=== PATIENT | female | born 1975 | race Caucasian/White ===

== ENCOUNTER → 2017-03-23 | Outpatient (CLI) | payer OTHER ==
[~2017-03-23] MED LIST: ALPR0.25 PO; PARO10TA24 PO
== END | disposition home or self-care (01) ==
LOC: STAR 15:15
PROVIDERS: ATTEND Thoracic Surgery (Cardiothoracic Vascular Surgery)
DX: Z02.9 Encounter for administrative examinations, unspecified (principal)

== ENCOUNTER 2017-03-30 06:50 | Day surgery (SDC) | payer OTHER ==
[~2017-03-30] VITALS: Ht 165.1 cm; Wt 73.9 kg
[~2017-03-30 06:50] MED LIST changes: +BUPIVACAINE/PF-EPI 0.5% 1:200K ONE
[2017-03-30] MEDS ORDERED: SCOPOLAMINE PATCH, 1.5MG PATCH.TD72 TD ONE ×2 (07:05→07:30)
[2017-03-30] MEDS ORDERED: LACTATED RINGERS 1,000 ML IV SCH ×2 (07:15→09:40)
[2017-03-30 07:16] VITALS: BP 120/80
[2017-03-30] MEDS ORDERED: FENTANYL PF 100 MCG/2ML ONE ×2 (08:37→09:56)
[2017-03-30] MEDS ORDERED: PROPOFOL 10 MG/ML, 20ML ONE (08:41)
[2017-03-30] MEDS ORDERED: ONDANSETRON 2MG/ML, 2ML ONE (08:41)
[2017-03-30] MEDS ORDERED: NEOSTIGMINE 1 MG/ML, 10ML ONE (08:41)
[2017-03-30] MEDS ORDERED: SUCCINYLCHOLINE 20 MG/ML, 10ML ONE (08:41)
[2017-03-30] MEDS ORDERED: ROCURONIUM 10 MG/ML ONE (08:41)
[2017-03-30] MEDS ORDERED: CEFAZOLIN 1,000 MG ONE (08:41)
[2017-03-30] MEDS ORDERED: DEXAMETHASONE 4 MG/ML, 1ML ONE (08:41)
[2017-03-30] MEDS ORDERED: GLYCOPYRROLATE 0.2MG/1ML ONE (08:41)
[2017-03-30] MEDS ORDERED: ACETAMINOPHEN 325 MG TABLET PO PRN (09:00)
[2017-03-30] MEDS ORDERED: hydrALAzine 20 MG/ML, 1ML IV PRN (09:00)
[2017-03-30] MEDS ORDERED: EPHEDRINE 50 MG/ML, 1ML IVPush PRN (09:00)
[2017-03-30] MEDS ORDERED: LABETALOL 5MG/ML, 20ML IV PRN (09:00)
[2017-03-30] MEDS ORDERED: ALBUTEROL SULFATE 2.5 MG/3 ML NPPB PRN (09:00)
[2017-03-30] MEDS ORDERED: OXYcodone 5 MG/5 ML ORAL.SOL UDC PO PRN (09:00)
[2017-03-30] MEDS ORDERED: ONDANSETRON 2MG/ML, 2ML IVPush PRN ×2 (09:00→10:00)
[2017-03-30] MEDS ORDERED: MEPERIDINE/PF 25MG/0.5ML IVPush PRN (09:00)
[2017-03-30] MEDS ORDERED: METOPROLOL 1 MG/ML, 5ML IV PRN (09:00)
[2017-03-30] MEDS ORDERED: OXYcodone 5 MG/5 ML ORAL.SOL UDC ONE (09:56)
[2017-03-30] MEDS: FENTANYL PF 100 MCG/2ML IV PRN ×2 (09:58→10:10)
[2017-03-30] MEDS ORDERED: morphine SULFATE 10 MG/ML, 1ML IVPush PRN (10:00)
[2017-03-30] MEDS ORDERED: HYDROcodone/APAP 7.5-325MG/15ML UDC PO PRN (10:00)
[2017-03-30] MEDS ORDERED: MEPERIDINE/PF 25MG/0.5ML ONE (10:00)
[2017-03-30] MEDS ORDERED: ACETAMINOPHEN 650 MG/20.3 ML UDC ONE (10:14)
[2017-03-30] MEDS ORDERED: HYDROmorphone 2 MG/ML, 1ML ONE (10:14)
[2017-03-30] MEDS: HYDROmorphone 1 MG/ML, 1ML IV PRN ×2 (10:17→10:29)
== END 2017-03-30 14:00 ==
LOC: OUT 06:50
PROVIDERS: ATTEND Thoracic Surgery (Cardiothoracic Vascular Surgery)
DX: K44.9 Diaphragmatic hernia without obstruction or gangrene (principal); K21.9 Gastro-esophageal reflux disease without esophagitis; F41.9 Anxiety disorder, unspecified; Z90.710 Acquired absence of both cervix and uterus; Z98.890 Other specified postprocedural states
CPT/HCPCS: 43281; J0330; J0690; J1100; J1170; J2405; J2704; J2710; J3010; J7120; J3490